=== PATIENT | male | born 1965 | race Caucasian/White ===

== ENCOUNTER 2020-08-13 12:29 | Emergency (ER) | payer OTHER ==
[2020-08-13] MEDS ORDERED: Boostrix 0.5 ML (Tdap) VIAL ONE (14:45)
[2020-08-13] MEDS ORDERED: Fluorescein Opthalmic Strip ONE ×2 (14:51→15:09)
[2020-08-13] MEDS ORDERED: Proparacaine 0.5% Opth 15 ML BOT ONE (14:53)
== END 2020-08-13 15:40 | disposition short-term general hospital (02) ==
LOC: ERS 12:29
DX: S01.81XA Laceration without foreign body of other part of head, initial encounter (principal); E11.9 Type 2 diabetes mellitus without complications; I10 Essential (primary) hypertension; Z79.84 Long term (current) use of oral hypoglycemic drugs; Z79.899 Other long term (current) drug therapy; W22.8XXA Striking against or struck by other objects, initial encounter
CPT/HCPCS: 90471; 90715